=== PATIENT | female | born 1995 | race Caucasian/White ===

== ENCOUNTER 2016-12-10 16:57 | Emergency (ER) ==
[2016-12-10 17:42] VITALS: BP 123/75; PULSE 65; TEMP 37.1; O2SAT 100; Ht 152.4 cm
== END 2016-12-10 18:00 | disposition left against medical advice (07) ==
LOC: C.EDB 16:58
DX: R53.83 Other fatigue (principal)

== ENCOUNTER → 2018-01-15 | Outpatient (CLI) | payer BC ==
--- NOTE | 2018-01-15 13:04 | MAMMOGRAPHY REPORT ---
ULTRASOUND OF LEFT BREAST: 01/15/2018 CLINICAL HISTORY: 22-year-old woman presents with a palpable lump in the lower outer quadrant of the left breast which she has noticed for a few months. Questionable if it has changed in size since she first discovered it. No skin thickening or erythema. No nipple discharge. No family history of sweetie ast cancer. COMPARISON: No prior exams were available for comparison. FINDINGS: Targeted ultrasound was performed in the area of palpable lump pointed out by the patient, in the 4:00 left breast approximately 7 cm from the nipple. On palpation, there is a rubbery mobile 2 cm mass. On targeted ultrasound, there is a mixed echogenicity circumscribed oval parallel mass th at is peripherally hypoechoic and mixed echogenicity centrally with prominent areas of echogenic tiss ue. No hypervascularity. It measures 1.4 x 1.0 x 2.2 cm. Differential considerations include fibro adenoma and fibroadenolipoma/hamartoma. Given the solid and palpable nature as well as size greater than 1 cm, definitive characterization with an ultrasound-guided core needle biopsy is recommended. IMPRESSION: ACR BI-RADS CATEGORY 4: SUSPICIOUS - FOLLOW-UP RECOMMENDED 1. Ultrasound-guided core biopsy is recommended for a solid palpable 2.2 cm mixed echogenicity oval parallel circumscribed palpable mass in the 4:00 left breast. These results and recommendations were discussed with the patient at the time of the exam. Ciera Rivera M.D. ay/:01/15/2018 10:08:12 Fretted Instrument Maker Hand: Dr. Ciera Rivera, [facility] letter sent: Abnormal 4/5 BI-RADS Code: ACR BI-RADS Category 4: Suspicious
== END | disposition home or self-care (01) ==
LOC: C.MAMM 09:28
PROVIDERS: ATTEND Physician Assistant Medical
DX: N63.23 Unspecified lump in the left breast, lower outer quadrant (principal)

== ENCOUNTER → 2018-01-23 | Outpatient (CLI) | payer BC ==
--- NOTE | 2018-01-23 15:05 | Discharge Instructions ---
Discharge Instructions Procedure Procedure Date: Jan 23, 2018. Reason for visit: Left Mass. Discharge Discharge Date: Jan 23, 2018. Discharge Diagnosis: post left breast ultrasound guided core biopsy Instructions Activity Recommendations: Additional Limitations (see below) Return to School/Work: no limitations Recommended Home Diet: No Limitations Provider Instructions: ACTIVITY RECOMMENDATIONS: * No lifting, pushing, pulling or exercising the affected side for three days. RETURN TO SCHOOL/WORK: * You may return to work/school after the procedure, but do not perform any strenuous activities for 24 to 48 hours. MEDICATIONS: * Tylenol (two 325 mg) every four to six hours if needed for mild pain (if not allergic to Tylenol). DIET: * Resume previous diet. SPECIAL CARE INSTRUCTIONS: * Keep biopsy site dry for 24 hours. May shower after 24 hours, but do not soak (bathe) incision. * May remove Tegaderm (plastic patch) tomorrow AFTER showering. * Leave the steri-strips on for one week. Allow the steri-strips to fall off by themselves. If not off after one week, you may remove them. You may place a Bandaid crosswise over the strips, if desired. * Apply ice 10 minutes on and 10 minutes off as needed. * Wear a bra at bedtime to sleep more comfortably for 2-3 days. * Your referring physician should have the results after approximately 5 to 7 business days. * Call for unusual bleeding, fever, drainage, etc or if you have any questions call [phone] during normal business hours or after hours call Dr Rivera, . FOLLOW UP VISIT: Follow-up with Referring Physician as scheduled. [place] Recommendations: Call your doctor if: * Temperature above 101 degrees * Pain not relieved by pain medicine ordered * There is increased drainage or redness from any incision * You have any unanswered questions or concerns. Your Doctors Instructions noted above were prepared by provider Ciera Rivera. Patient Signature Section: Patient Instructions Signature Page [place] Patient (or Guardian) Signature/Date: I have read and understand the instructions given to me by my caregivers. Caregiver/RN/Doctor Signature/Date: The above-named patient and/or guardian has received patient instructions on this date. + Original Patient Signature Page (only) stays with chart. Please make copy for patient.
--- NOTE | 2018-01-24 14:44 | MAMMOGRAPHY REPORT ---
ULTRASOUND GUIDED BIOPSY LEFT BREAST: 01/23/2018 CLINICAL HISTORY: Palpable mixed echogenicity oval parallel circumscribed 14 mm mass in the 4:00 left breast. Patient presents for ultrasound-guided core biopsy. COMPARISON: Comparison is made to exam dated: 01/15/2018 ultrasound - [facility]. PATIENT CONSENT: The procedure, risks and benefits were discussed with the patient and informed conse nt was obtained both verbally and in writing. Specific risks to this procedure include: bleeding, in fection, puncture of adjacent structure, nontarget biopsy, sampling error, pain, metal allergy and me dication reaction. PROCEDURE DESCRIPTION: A time out was performed and the left breast was agreed as the site of biopsy. The skin was prepped and draped in the usual sterile fashion. The solid palpable 14 mm oval mixed ec hogenicity mass in the 4:00 left breast was chosen as the target for biopsy. Subcutaneous and intrapa renchymal 1% buffered lidocaine, with and without epinephrine, was administered as local anesthesia. A skin incision was made. Through the incision, 3 samples were taken with a 14 gauge Achieve biopsy device. A ribbon shaped metallic marker was placed at the biopsy site. Hemostasis was achieved after manual compression. The patient tolerated the procedure well and there was no immediate complication. The samples were sent to the pathology department in an appropriately labeled container. Postprocedure mammography was deferred given the patient's age. IMPRESSION: ULTRASOUND GUIDED BIOPSY Status post ultrasound guided biopsy of the mixed echogenicity solid palpable 14 mm mass in the 4:00 left breast, with ribbon-shaped biopsy marker clip placed at the site. The patient will receive notification of the biopsy results from her referring physician. Ciera Rivera M.D. ay/:01/23/2018 15:26:01 Payable Processor: Trisha RICHARD)([place]), [facility]
== END | disposition home or self-care (01) ==
LOC: C.MAMM 14:25
PROVIDERS: ATTEND Physician Assistant Medical
DX: R92.8 Other abnormal and inconclusive findings on diagnostic imaging of breast (principal); N63.20 Unspecified lump in the left breast, unspecified quadrant; D24.2 Benign neoplasm of left breast